=== PATIENT | male | born 1960 | race Two or more races ===

== ENCOUNTER 2023-06-08 10:13 | Emergency (ER) | payer OTHER ==
[~2023-06-08] VITALS: Ht 167.6 cm; Wt 78.0 kg
[2023-06-08] MEDS ORDERED: BISOPROLOL-HCT1 EACH PO (10:35)
[2023-06-08] MEDS ORDERED: COZAAR25 MG PO (10:35)
[2023-06-08] MEDS ORDERED: INDERAL XL80 MG (10:36)
== END 2023-06-08 13:24 | disposition home or self-care (01) ==
LOC: ER 10:15
DX: H60.8X3 Other otitis externa, bilateral (principal); I10 Essential (primary) hypertension